=== PATIENT | female | born 1960 | race Caucasian/White ===

== ENCOUNTER 2023-10-28 05:38 | Day surgery (SDC) | payer OTHER ==
[~2023-10-28] VITALS: Ht 152.4 cm; Wt 59.0 kg
[2023-10-28 06:14] VITALS: O2SAT 97
[2023-10-28] MEDS ORDERED: SIMETHICONE 40 MG/0.6 ML ML ONE (07:05)
[2023-10-28] MEDS ORDERED: MEPERIDINE 100 MG INJ. 100 MG/ML VIAL ONE (07:05)
[2023-10-28] MEDS ORDERED: MIDAZOLAM HCL 5 MG/5 ML VIAL ONE (07:05)
[2023-10-28 16:47] VITALS: BP_SYST 105; PULSE 66; RESP 17
== END 2023-10-28 09:00 | disposition home or self-care (01) ==
LOC: SDS 05:38
PROVIDERS: ATTEND Internal Medicine Gastroenterology
DX: Z12.11 Encounter for screening for malignant neoplasm of colon (principal); D12.2 Benign neoplasm of ascending colon; K64.8 Other hemorrhoids; E78.5 Hyperlipidemia, unspecified; M85.88 Other specified disorders of bone density and structure, other site
CPT/HCPCS: 99152; 45385; 88305; G0378; J2250; J2175